=== PATIENT | female | born 1970 | race Caucasian/White ===

== ENCOUNTER 2019-05-17 03:52 | Observation (INO) ==
[2019-05-17] MEDS ORDERED: Nitroglycerin 0.4 MG TAB.SUBL SL PRN (04:07)
[2019-05-17] MEDS ORDERED: Aspirin 81 MG TAB.CHEW PO ONE (04:07)
[2019-05-17 04:53] LABS: Basophils # 0.1 K/mcL (0.0-0.2); Basophils % 0.8 %; Eosinophils # 0.2 K/mcL (0.0-0.6); Eosinophils % 2.2 %; Hematocrit 44.1 % (35.3-44.9); Immature Granulocytes % 1.3 % (0-4); Lymphocytes # 1.8 K/mcL (0.6-4.6); Lymphocytes % 17.6 %; Mean Corpuscular Hemoglobin 31.1 pg (28.0-33.3); Mean Corpuscular Volume 91.3 fL (83.0-100.0); Mean Platelet Volume 9.3 fL (9.4-12.4); Monocytes # 0.9 K/mcL (0.0-1.3); Monocytes % 8.7 %; Neutrophils # 7.2 K/mcL (1.6-8.9); Platelet Count 359 K/mcL (140-400); Red Blood Count 4.83 M/mcL (3.82-4.97); Segmented Neutrophils % 69.4 %; White Blood Count 10.3 K/mcL (4.3-11.1)
[2019-05-17] MEDS ORDERED: GI Cocktail 40 ML EACH PO ONE (04:56)
[2019-05-17] MEDS ORDERED: Ondansetron 4 MG/2 ML VIAL IVP ONE (04:56)
[2019-05-17 05:03] LABS: INR 0.9; Prothrombin Time 10.4 Seconds (9.4-12.1)
[2019-05-17 05:06] LABS: Activated Partial Thrombo Time 30.2 Seconds (26.0-36.0)
[2019-05-17 05:12] LABS: BUN/Creatinine Ratio 14 (6-26); Blood Urea Nitrogen 13 mg/dL (6-20); Calcium 8.8 mg/dL (8.6-10.3); Carbon Dioxide 24 mEq/L (23-29); Chloride 104 mEq/L (98-107); Glucose 112 mg/dL (70-105); Osmolality,Calculated 283 (280-300); Potassium 3.2 mEq/L (3.5-5.1); Sodium 136 mEq/L (136-145); eGFR For African Americans > 60 (> 60); eGFR For Non-African Americans > 60 (> 60)
[2019-05-17 05:13] LABS: Troponin I < 0.03 ng/mL (< 0.04)
[2019-05-17] MEDS ORDERED: Naloxone 0.4 MG/ML INJ IVP PRN (07:46)
[2019-05-17] MEDS ORDERED: Ondansetron ODT 4 MG TAB.RAPDIS SL PRN (07:46)
[2019-05-17 08:27] VITALS: BP 96/65
[2019-05-17] MEDS ORDERED: BuPROPion XL (24 HR) 150 MG TABLET PO SCH (09:00)
[2019-05-17 10:24] LABS: Chol/HDL Ratio 5.6 (0-4.9); Cholesterol 231 mg/dL (< 200); HDL Cholesterol 41 mg/dL (40-59); LDL Cholesterol,Calculated 169 mg/dL (0-99); Triglycerides 105 mg/dL (< 150)
[2019-05-17 10:30] LABS: Troponin I < 0.03 ng/mL (< 0.04)
== END 2019-05-17 14:00 | disposition home or self-care (01) ==
LOC: EMEROOARM 03:52 → 3NENU 03:52
PROVIDERS: ADMIT Internal Medicine; ATTEND Internal Medicine